=== PATIENT | male | born 1995 | race Caucasian/White ===

== ENCOUNTER 2017-07-24 00:38 | Emergency (ER) | payer OTHER ==
[2017-07-24 00:45] VITALS: TEMP 98.2
--- NOTE | 2017-07-24 01:18 | EDPHY ---
H & P Stated Complaint: says cut R knee 6 days ago, steri strips applied, tonight fell popped open Time Seen by Provider: 07/24/17 01:09 HPI/ROS: Chief Complaint: Wound check HPI: 22-year-old male sustained injury to his right slater 6 days ago while skiing. He was seen at urgent care and had Steri-Strips placed. Patient states that he slipped and fell on it tonight. He noticed a large pool of blood in his jeans is presenting for evaluation. Denies any new fevers or chills. No redness. Has not had any discharge from the wound. No redness. ROS: 10 point Review of Systems is negative except as noted in the HPI. PMH: Denies Social History: [No] smoking, [no] alcohol, [ no recreational drug use] Family History: [non-contributory] Physical Exam: General: Awake, alert, no acute distress Right leg: Patient has a healing laceration to his right slater with Steri- Strips in place. There is no erythema. There is no discharge. There is no active bleeding. He has full range of motion without pain. Skin: No rash - Medical/Surgical History Hx Asthma: No Hx Chronic Respiratory Disease: No Hx Diabetes: No Hx Cardiac Disease: No Hx Renal Disease: No Hx Cirrhosis: No Hx Alcoholism: No Hx HIV/AIDS: No Hx Splenectomy or Spleen Trauma: No Other PMH: R acl surg - Social History Smoking Status: Never smoked Constitutional: Initial Vital Signs Temperature (C) 36.8 C 07/24/17 00:42 Heart Rate 85 07/24/17 00:42 Respiratory Rate 16 07/24/17 00:42 Blood Pressure 110/71 07/24/17 00:42 O2 Sat (%) 92 07/24/17 00:42 O2 Delivery Mode Room Air Allergies/Adverse Reactions: No Known Allergies Allergy (Unverified 07/24/17 00:45) Home Medications: Medication Instructions Recorded NK [No Known Home Meds] 07/24/17 Medical Decision Making ED Course/Re-evaluation: Steri-Strips removed by me. No further bleeding. There are no signs of infection. I have advised that leaving it to heal on its own will probably be the best course at this time. Will refer for outpatient follow-up as needed. Departure - Departure Disposition: Home, Routine, Self-Care Clinical Impression: Healing wound Condition: Good Instructions: Laceration Without Closure (ED) Additional Instructions: Keep the wound clean and dry. Follow up with primary care in 4-5 days for further evaluation. Return emergency depart for increasing redness, discharge from the wound, fevers , chills, streaking on your leg, or any other concerns. Referrals: Jameson Galindo [place] [place] - As per Instructions
[2017-07-24 01:43] VITALS: BP 112/69; PULSE 80; RESP 14; O2SAT 95
== END 2017-07-24 01:41 | disposition home or self-care (01) ==
DX: S81.811A Laceration without foreign body, right lower leg, initial encounter (principal); W01.0XXA Fall on same level from slipping, tripping and stumbling without subsequent striking against object, initial encounter

== ENCOUNTER 2017-10-02 21:06 | Emergency (ER) | payer OTHER ==
[2017-10-02 21:15] VITALS: BP 123/76
[2017-10-02] MEDS ORDERED: IBUPROFEN 600 MG TAB PO ONE (21:35)
--- NOTE | 2017-10-02 21:35 | EDPHY ---
General Time Seen by Provider: 10/02/17 21:28 Narrative: CHIEF COMPLAINT: Right knee injury HISTORY OF PRESENT ILLNESS: Patient complains of right knee pain status post injury. He was playing lacrosse within the past hour. He says he pivoted and felt a sudden onset of pain and popping in the right knee. He fell to the ground a severe pain. Unable to continue playing and stopped. The pain is improved but is still moderate to severe. Worse with any kind of weight-bearing, palpation or movement. Does not radiate. No numbness, tingling or weakness. He does feel that the knee buckled when this happened. History of ACL injury with surgical prior. No injury elsewhere. Able to walk into the emergency department using his friend as a crutch. No other associated complaints or modifying factors. ESTABLISHED ORTHOPEDIST: None locally REVIEW OF SYSTEMS: Ten systems reviewed and are negative unless otherwise noted in the HPI PAST MEDICAL HISTORY: Orthopedic injuries PAST SURGICAL HISTORY: Orthopedic surgeries including ACL repair of the right knee SOCIAL HISTORY: Nonsmoker. [employer] student. Originally from [place] FAMILY HISTORY: Noncontributory EXAMINATION General Appearance: Alert, no distress Cardiovascular: Symmetric DP pulses 2+. Symmetric PT pulses 2+. Neurological: A&O, sensory is symmetric to the dorsum of the foot and plantar surfaces. No foot drop on the right. Normal strength of the right great toe. Skin: Warm and dry, no rash. No petechiae. No purpura. No puncture laceration Extremities: Tenderness of the entire knee with no point tenderness of the patella. Range of motion is limited due to pain but he is able to flex and extend the knee. Unable to fully perform locked manner drawer test due to discomfort. No obvious deformity of the knee. Psychiatric: Mood and affect normal DIFFERENTIAL DIAGNOSES: Including but not limited to sprain, strain, ACL injury, meniscal injury, fracture, subluxation MDM: 9:30 p.m. Acute injury to the right knee within the past hour. This was a twisting mechanism with suspected soft tissue injury. He does have history of ACL injury status post repair several years ago. He is neurovascular intact distally. X-ray is pending. I have ordered ibuprofen. He is in no acute distress. 9:40 p.m. X-ray as reviewed by me reveals no obvious abnormality. There is evidence of previous ACL repair. 9:50 p.m. X-ray has been read as no acute osseous abnormality. Possible joint effusion. Patient re-evaluated. I performed Olayinka and drawer test with equivocal Olayinka. No further special test performed. Patient does have knee sprain will need outpatient follow up with Orthopedics. Do not feel he warrants an emergent MRI at this time. He has been provided crutches and Olayinka wrap. He also has his own hinged knee brace for use. We discussed ice and elevation. We discussed ED precautions and he is comfortable with this plan. Discharged home stable condition. SUPERVISION: This patient was independently evaluated without direct involvement of or examination by the attending physician. ED Precautions: Worsening pain. Erythema, edema, cyanosis, pallor, paresthesia or anesthesia. - Diagnostics Imaging Results: Imaging Impressions Knee X-Ray 10/02/17 21:20 Impression: 1. Previous ACL repair with tunnels. 2. No definite fracture. 2. Questionable joint effusion. - History Smoking Status: Never smoked - Objective Vital Signs: Initial Vital Signs Temperature (C) 97.9 F 10/02/17 21:14 Heart Rate 87 10/02/17 21:14 Respiratory Rate 18 10/02/17 21:14 Blood Pressure 123/76 H 10/02/17 21:14 O2 Sat (%) 92 10/02/17 21:14 O2 Delivery Mode Room Air Allergies/Adverse Reactions: No Known Allergies Allergy (Verified 10/02/17 21:13) Home Medications: Medication Instructions Recorded NK [No Known Home Meds] 07/24/17 Medications Given: Discontinued Medications Ibuprofen (Motrin) 600 mg PO EDNOW ONE Stop: 10/02/17 21:36 Last Admin: 10/02/17 21:40 Dose: 600 mg Departure - Departure Disposition: Home, Routine, Self-Care Clinical Impression: Right knee sprain Qualifiers: Encounter type: initial encounter Involved ligament of knee: unspecified ligament Qualified Code(s): S83.91XA - Sprain of unspecified site of right knee , initial encounter Condition: Good Instructions: Knee Sprain (ED) Additional Instructions: 1. Weightbearing as tolerated with light activity 2. Crutches as provided her as needed 3. Ice and elevation often 4. Contact the on-call orthopedist as provided for outpatient care 5. ED precautions as discussed Referrals: Raz Reed MD [Medical Doctor] - As per Instructions Stand Alone Forms: Physical Education Excuse, Statement of Treatment
== END 2017-10-02 22:00 | disposition home or self-care (01) ==
DX: S83.91XA Sprain of unspecified site of right knee, initial encounter (principal); W19.XXXA Unspecified fall, initial encounter; Y99.8 Other external cause status; Y93.65 Activity, lacrosse and field hockey